=== PATIENT | male | born 1990 | race Caucasian/White ===

== ENCOUNTER 2017-11-16 22:59 | Emergency (ER) | payer OTHER ==
--- NOTE | 2017-11-16 23:16 | EDPHY ---
H & P Stated Complaint: syncopal episode, possible seizure Time Seen by Provider: 11/16/17 23:02 HPI/ROS: HPI CHIEF COMPLAINT: Syncope HISTORY OF PRESENT ILLNESS: Patient is a 27-year-old male, he is otherwise healthy without any significant medical history presents emergency room after he had a syncopal episode. Patient states he was sitting watching TV when all the sudden he developed abdominal cramping rather severe decided go the bathroom he sat on the toilet and had a syncopal episode. He then had diarrhea. He states cramping was rather severe. He denies any chest pain or shortness of breath, denies palpitations, denies lightheadedness, denies focal weakness headache neck pain or chest pain. Patient decided come the emergency room to be evaluated. Upon arrival to the emergency room he has stable vital signs in no acute distress. He does complain of some mild abdominal cramping otherwise no other complaints. Past Medical History: Denies significant medical history Past Surgical History: Denies significant surgical history Social History: Denies daily use of drugs alcohol tobacco. Family History: Noncontributory ROS REVIEW OF SYSTEMS: A comprehensive 10 point review of systems is otherwise negative aside from elements mentioned in the history of present illness. Exam Constitutional appears well nontoxic no acute distress triage nursing summary reviewed, vital signs reviewed, awake/alert. Eyes normal conjunctivae and sclera, EOMI, PERRLA. HENT normal inspection, atraumatic, moist mucus membranes, no epistaxis, neck supple/ no meningismus, no raccoon eyes. Respiratory clear to auscultation bilaterally, normal breath sounds, no respiratory distress, no wheezing. Cardiovascular rate normal, regular rhythm, no murmur, no edema, distal pulses normal. Gastrointestinal cannot elicit any abdominal pain on exam, soft, non-tender, no rebound, no guarding, normal bowel sounds, no distension, no pulsatile mass. Genitourinary no CVA tenderness. Musculoskeletal no midline vertebral tenderness, full range of motion, no calf swelling, no tenderness of extremities, no meningismus, good pulses, neurovascularly intact. Skin pink, warm, & dry, no rash, skin atraumatic. Neurologic awake, alert and oriented x 3, AAOx3, moves all 4 extremities equally, motor intact, sensory intact, CN II-XII intact, normal cerebellar, normal vision, normal speech. Psychiatric normal mood/affect. Heme/Lymph/Immune no lymphadenopathy. Differential Diagnosis: Includes but is not limited to in a particular order vasovagal syncope, orthostatic syncope, dehydration, electrolyte disturbance, acute diarrheal illness, volume depletion. Medical Decision Making: Plan for this patient IV establishment with IV fluid bolus 1 L normal saline, check basic electrolytes, EKG, troponin and re- evaluate. Story is consistent with most likely vasovagal syncope after developed severe abdominal cramping diarrheal bowel movement and had a syncopal episode on the toilet. Re-evaluation: EKG interpretation by me on record in [employer] system. Impression time of EKG 2333, sinus rhythm rate of 61, first-degree AV block OK interval 228, no acute ischemia no ST elevation or ST depression, no T-wave abnormalities. Unremarkable nonacute ischemic EKG. ED x-ray chest one view negative for acute cardiopulmonary disease. 1247: Patient resting comfortably in fact he was sleeping. He is feeling much better after IV fluids. He has no complaints he denies chest pain or shortness of breath. Denies abdominal pain is feeling much better. He ambulated well throughout the emergency room without any difficulty. Return precautions discussed he understands return emergency room if develops any worsening symptoms includes chest pain, shortness of breath or passing out. He understands to rest, stay well-hydrated return if worse. Source: Patient - Personal History Current Tetanus Diphtheria and Acellular Pertussis (TDAP): Yes - Medical/Surgical History Hx Asthma: No Hx Chronic Respiratory Disease: No Hx Diabetes: No Hx Cardiac Disease: No Hx Renal Disease: No Hx Cirrhosis: No Hx Alcoholism: No Hx HIV/AIDS: No Hx Splenectomy or Spleen Trauma: No - Social History Smoking Status: Never smoked Constitutional: Initial Vital Signs Temperature (C) 36.3 C 11/16/17 23:02 Heart Rate 69 11/16/17 23:02 Respiratory Rate 20 11/16/17 23:02 Blood Pressure 117/70 11/16/17 23:02 O2 Sat (%) 99 11/16/17 23:02 O2 Delivery Mode Room Air Allergies/Adverse Reactions: loratadine [From Claritin] Allergy (Verified 11/16/17 23:02) Home Medications: Medication Instructions Recorded NK [No Known Home Meds] 11/16/17 Medical Decision Making - Diagnostics Imaging Results: Imaging Impressions Chest X-Ray 11/16/17 23:19 Impression: Negative portable chest. - Data Points Laboratory Results: Laboratory Results 11/16/17 23:20 11/16/17 23:20 11/16/17 11/16/17 11/16/17 23:26 23:20 23:20 WBC 7.47 10^3/uL 10^3/uL (3.80-9.50) RBC 4.99 10^6/uL 10^6/uL (4.40-6.38) Hgb 14.6 g/dL g/dL (13.7-17.5) Hct 40.8 % % (40.0-51.0) MCV 81.8 fL fL (81.5-99.8) MCH 29.3 pg pg (27.9-34.1) MCHC 35.8 g/dL g/dL (32.4-36.7) RDW 12.1 % % (11.5-15.2) Plt Count 201 10^3/uL 10^3/uL (150-400) MPV 9.5 fL fL (8.7-11.7) Neut % (Auto) 49.7 % % (39.3-74.2) Lymph % (Auto) 36.5 % % (15.0-45.0) [place] % (Auto) 9.4 % % (4.5-13.0) Eos % (Auto) 3.7 % % (0.6-7.6) Baso % (Auto) 0.4 % % (0.3-1.7) Nucleat RBC Rel Count 0.0 % % (0.0-0.2) Absolute Neuts (auto) 3.71 10^3/uL 10^3/uL (1.70-6.50) Absolute Lymphs (auto) 2.73 10^3/uL 10^3/uL (1.00-3.00) Absolute Monos (auto) 0.70 10^3/uL 10^3/uL (0.30-0.80) Absolute Eos (auto) 0.28 10^3/uL 10^3/uL (0.03-0.40) Absolute Basos (auto) 0.03 10^3/uL 10^3/uL (0.02-0.10) Absolute Nucleated RBC 0.00 10^3/uL 10^3/uL (0-0.01) Immature Gran % 0.3 % % (0.0-1.1) Immature Gran # 0.02 10^3/uL 10^3/uL (0.00-0.10) Sodium 142 mEq/L mEq/L (135-145) Potassium 3.9 mEq/L mEq/L (3.3-5.0) Chloride 105 mEq/L mEq/L (97-110) Carbon Dioxide 23 mEq/l mEq/l (22-31) Anion Gap 14 mEq/L mEq/L (8-16) BUN 21 mg/dL mg/dL (7-23) Creatinine 0.9 mg/dL mg/dL (0.7-1.3) Estimated GFR > 60 Glucose 100 mg/dL mg/dL (70-100) Calcium 9.0 mg/dL mg/dL (8.5-10.4) Magnesium 2.0 mg/dL mg/dL (1.6-2.3) Total Bilirubin 0.5 mg/dL mg/dL (0.1-1.4) Conjugated Bilirubin 0.4 mg/dL mg/dL (0.0-0.5) Unconjugated Bilirubin 0.1 mg/dL mg/dL (0.0-1.1) AST 22 IU/L IU/L (17-59) ALT 34 IU/L IU/L (21-72) Alkaline Phosphatase 45 IU/L IU/L (38-126) POC Troponin I 0.00 ng/mL ng/mL (0.00-0.08) Total Protein 6.6 g/dL g/dL (6.3-8.2) Albumin 4.1 g/dL g/dL (3.5-5.0) Medications Given: Discontinued Medications Sodium Chloride (Ns) 1,000 mls @ 0 mls/hr IV EDNOW ONE; Wide Open PRN Reason: Protocol Stop: 11/16/17 23:20 Last Admin: 11/16/17 23:20 Dose: 1,000 mls Point of Care Test Results: Chemistry 11/16/17 23:26 POC Troponin I 0.00 ng/mL ng/mL (0.00-0.08) Departure - Departure Disposition: Home, Routine, Self-Care Clinical Impression: Syncope Qualifiers: Syncope type: unspecified Qualified Code(s): R55 - Syncope and collapse Condition: Good Instructions: Syncope (ED) Additional Instructions: 1. Stay well-hydrated drink lots of fluids. 2. Return emergency room if you have worsening symptoms includes chest pain, shortness of breath, or passing out. Referrals: NONE *PRIMARY CARE P,. [Primary Care Provider] - As per Instructions
[2017-11-16] MEDS ORDERED: NS 1,000 ML IV ONE (23:19)
--- NOTE | 2017-11-16 23:35 | CPEKG ---
Heart Rate: 61 RR Interval: 984 P-R Interval: 228 QRSD Interval: 98 QT Interval: 420 QTC Interval: 423 P [place]: 68 QRS [place]: 69 T Wave [place]: 45 EKG Severity - ABNORMAL ECG - EKG Impression: SINUS RHYTHM EKG Impression: FIRST DEGREE AV BLOCK Electronically Signed By: Armin Mueller 17-Nov-2017 05:44:25
[2017-11-16 23:39] LABS: PLATELET COUNT 201 10^3/uL (150-400)
[2017-11-17 00:54] VITALS: BP 120/63
== END 2017-11-17 00:53 | disposition home or self-care (01) ==
DX: R55 Syncope and collapse (principal); E86.9 Volume depletion, unspecified
CPT/HCPCS: 84484-PO